=== PATIENT | female | born 1965 | race Caucasian/White ===

== ENCOUNTER 2021-03-01 10:03 | Outpatient (CLI) | payer OTHER, SELFPAY | END 2021-03-01 10:04 | disposition home or self-care (01) | LOC: ANHCOVIDVC 10:03 | PROVIDERS: PCP Nurse Practitioner | DX: Z23 Encounter for immunization (principal) | CPT/HCPCS: 0001A; 91300 ==

== ENCOUNTER 2021-03-22 10:00 | Outpatient (CLI) | payer OTHER, SELFPAY | END 2021-03-22 10:01 | disposition home or self-care (01) | LOC: ANHCOVIDVC 10:00 | PROVIDERS: PCP Nurse Practitioner | DX: Z23 Encounter for immunization (principal) | CPT/HCPCS: 0002A; 91300 ==

== ENCOUNTER 2023-10-28 10:00 | Outpatient (RCR) | payer OTHER, SELFPAY ==
--- NOTE | 2023-09-22 11:43 | OPREHPOC ---
Outpatient Therapy Plan of Care This is a Multidisciplinary Plan of Care that may contain components documented by all disciplines (PT, OT, and ST.) PT Problem 1 PT Problem #1 Knowledge Deficit PT Goal 1 Goal 1* indep with HEP 2* demonstrate correct posture & positioning with exercises PT Problem 2 PT Problem #2 Pain PT Goal 1 Goal 1* pt report pain of 3/10 at worst 2* radicular pain into R LE to elbow at worst 3* self assessment with Neck Index score of 10% limitation in activity PT Problem 3 PT Problem #3 Impaired Flexibility PT Goal 1 Goal pt perform 3 reps, without an increase in pain reported: 1* cervical flexion 2* cervical extension 3* R shoulder flexion 4* L shoulder flexion PT Problem 4 PT Problem #4 Impaired Strength PT Goal 1 Goal 1* increase cervical thoracic strength, pt able to perform 20 reps of prone and standing exercises
--- NOTE | 2023-09-22 11:43 | PTOPEVAL1 ---
Assessment and note entered by Latasha Carrillo, PT Evaluation Information Assessment Status Evaluation Diagnosis cervicalgia Onset Jul 2022 Subjective Information gradual increase in pain of neck; no trauma or injury to neck; went to chiropractor, had adjustments to neck--neck was stuck, had tinnitus; she stopped going; meloxicam helped; saw neurosurgeon in [place], was to have surgery; then returned to [place]--saw neurosurgeon here, to try PT to see if can avoid surgery; pt is R handed; Activity level: active; played pickle ball- not able to do since neck pain worse; Reported Pain Level Pain Score Self Report Additional Pain Score Comments pain range in the past week 2-6/10 tight in neck, tingle to tips of R fingers-- intermittent; no longer has tingling in L arm for past few months increase pain cervical flexion and extension decrease pain: rest, meloxicam, ice, heat, home stim unit, massager, have new mattress, good shoes, orthotic shoes with sleeping, varies: have hip bursitis, back pain with lying on her side: neck pain does wake her up--unable to give a number of times awaken Neck Disability Index- 26% limitation only fitness can do is walking/ no longer able to play pickle ball; Assessment PT Clinical Summary Janet has the diagnosis of cervicalgia with radicular into R fingers- intermittent. Her pain has decreased, no longer has radicular pain into her L UE. Her activity level is decreased-- no longer doing fitness exercises with UE and is not playing pickle ball. Sleep is disrupted due to pain. Self assessment functional score of 26% limitation in activity. She is retired. She has had a neurosurgeon consult and wants to try therapy, to avoid neck surgery. With the evaluation, she has increased pain with cervical flexion and extension motions and use of UE's; spasms over cervical and upper traps R > L; Skilled PT services are indicated for modalities to decrease pain and muscle spasms; therapeutic exercises to stretch and strengthen cervical- thoracic musculature wit
--- NOTE | 2023-10-07 16:40 | PCPTNOTE ---
Patient called & cancelled scheduled appointment for 10/08/23 due to being busy from the Holiday.
--- NOTE | 2023-10-28 10:49 | PTOPDC ---
Assessment and note entered by Latasha Carrillo, PT Evaluation Information Assessment Status Discharge Diagnosis cervicalgia Onset Jul 2022 Subjective Information frustrated that still have tingling and numbness in her R arm; frustrated cannot play pickle ball and do things like want to; also have low back and hip pain; have been doing the exercises at home; watching her positions with driving, sleeping and activity; not sure if she wants surgery or not--need to see dr and ask what to expect outcome of surgery would be; Reported Pain Level Pain Score Self Report Additional Pain Score Comments pain range in the past week 4-6/10; radicular pain/tingle to elbow at worst--intermittent; knots and tightness over neck and shoulder blade; increase pain: cervical extension, R and L shoulder flexion at end range decrease pain: traction, stretching with L side bend; Assessment PT Clinical Summary Janet has received 9 PT sessions. Compared to the initial evaluation: pain at the high rating is the same 6/10 and low rating worse was 2 and now 4/10; decreased radicular pain into R UE, was to fingers, now to elbow; cervical flexion no longer causes pain, but pain increases with extension cervical, R and L shoulder flexion; education completed for posture, positioning and HEP; self assessment Neck Disability Index score worse, from 26% to 34% limitation in activity level; Discussion at length today with pt: cervical basic anatomy, radicular pain, posture, activity level, self management of pain--theracane massage tool, home cervical traction unit; need to return to for more info about surgery, what to expect her outcome to be for her activity level post op; pt voiced frustration about not being able to play pickle ball, be active and do things. She has a good understanding of HEP, posture and how to manage her pain. The goals were partially met. She is to continue with her HEP and monitor activity level. Discharge PT. Janet is to follow up with . Plan of Care PT Services Indicated No
== END 2023-10-28 12:18 | disposition home or self-care (01) ==
LOC: ANHPT 10:00
PROVIDERS: PCP Physician Assistant; Visit Provider Neurological Surgery
DX: M54.2 Cervicalgia (principal); M54.12 Radiculopathy, cervical region
CPT/HCPCS: 97012; 97110; 97140; 97161; 97530

== ENCOUNTER 2024-02-17 10:10 | Outpatient (CLI) | payer OTHER, SELFPAY ==
--- NOTE | ~2024-02-17 | MM_ITS ---
EXAMINATION: MM screening [facility] BI w danyelle HISTORY: Screening TECHNIQUE: Craniocaudal and mediolateral oblique 3-D tomosynthesis images were obtained and synthetic 2-D images were generated. CAD analysis was submitted and interpreted. COMPARISON: No prior mammogram is available for comparison at this institution. BREAST PARENCHYMAL COMPOSITION: Not dense: There are scattered areas of fibroglandular density. FINDINGS: There are multiple masses in the lower inner quadrant of the right breast. There are no denilson picious masses, calcifications or architectural distortion in the left breast to suggest malignancy. IMPRESSION: 1. Multiple right breast masses, lower inner quadrant. 2. Recommend comparison to previous outside mammograms. BI-RADS Category 0: Incomplete: Needs additional imaging evaluation. Reviewed, dictated and finalized at location A.
== END 2024-02-17 10:11 | disposition home or self-care (01) ==
PROVIDERS: PCP Physician Assistant; Visit Provider Obstetrics & Gynecology
DX: Z12.31 Encounter for screening mammogram for malignant neoplasm of breast (principal); R92.8 Other abnormal and inconclusive findings on diagnostic imaging of breast
CPT/HCPCS: 77063; 77067

== ENCOUNTER 2025-04-07 10:22 | Outpatient (CLI) | payer OTHER, SELFPAY ==
--- NOTE | ~2025-04-07 | MM_ITS ---
EXAMINATION: MM screening [facility] BI w danyelle HISTORY: Screening TECHNIQUE: Craniocaudal and mediolateral oblique 3-D tomosynthesis images were obtained and synthetic 2-D images were generated. CAD analysis was submitted and interpreted. COMPARISON: Comparison to multiple prior studies sequentially, with oldest reviewed study dated 12/29. BREAST PARENCHYMAL COMPOSITION: Not dense: There are scattered areas of fibroglandular density. FINDINGS: There is no evidence of suspicious mass, calcification, or architectural distortion to sugg est malignancy in either breast. There has been no suspicious interval change. IMPRESSION: 1. No mammographic evidence of malignancy. 2. Recommend routine screening mammography in one year. BI-RADS Category 1: Negative Reviewed, dictated and finalized at location B.
== END 2025-04-07 10:23 | disposition home or self-care (01) ==
LOC: ANHIMG 10:24
PROVIDERS: PCP Physician Assistant; Visit Provider Obstetrics & Gynecology
DX: Z12.31 Encounter for screening mammogram for malignant neoplasm of breast (principal)
CPT/HCPCS: 77063; 77067